=== PATIENT | female | born 1960 | race Caucasian/White ===

== ENCOUNTER 2025-02-06 11:17 | Outpatient (CLI) | payer OTHER, SELFPAY ==
--- NOTE | ~2025-02-06 | MM_ITS ---
EXAMINATION: MM screening sierra BI w any HISTORY: Screening TECHNIQUE: Craniocaudal and mediolateral oblique 3-D tomosynthesis images were obtained and synthetic 2-D images were generated. CAD analysis was submitted and interpreted. COMPARISON: No prior mammogram is available for comparison at this institution. BREAST PARENCHYMAL COMPOSITION: Not Dense: The breasts are almost entirely fatty. FINDINGS: No suspicious calcifications or architectural distortion. Asymmetry in the upper right breast, posterior depth, seen in the right MLO projection. IMPRESSION: 1. Asymmetry in the upper right breast, posterior depth, seen in the right MLO projection. The study is incomplete. A diagnostic mammogram and a diagnostic ultrasound are recommended. BI-RADS 0: Incomplete-Need additional imaging evaluation. Reviewed, dictated, and finalized at Location A. Reviewed, dictated and finalized at location Q. IMPRESSION: 1. Asymmetry in the upper right breast, posterior depth, seen in the right MLO projection. The study is incomplete. A diagnostic mammogram and a diagnostic ul trasound are recommended. BI-RADS 0: Incomplete-Need additional imaging evaluation.
--- OUTSIDE RECORDS SUMMARY | 2025-02-06 11:49 | XMS_ITS | Encounter Summary ---
Author Organization [facility] Address [facility] [place] [address] Care Team Providers Care Server Administrator Name Role Phone None, Provider Primary Care Provider Unavaila ble Encounter Details Date Type Department Care Team (Late st Contact Info) Description 11/17/2015 Abstract [facility] CONVERSION [address] [place], [place] [id number] , Generic Conversion, Social History Tobacco Use Types Packs/Day Years Used Date Smoking Tobacco: Never Assessed Comments Unknown Sex and Gender Information Value Date Recorded Sex Assigned at Not on file Legal Sex Female 6:37 PM CDT Gender Identity Not on file Sexual Orientation Not on file documented as of this encounter Plan of Treatment Not on file documented as of this encounter Visit Diagnoses Not on filedocumented in this encounter Care Teams Server Administrator Relationship Specialty Start Date End Date None, Provider, PCP - General 08/26/20 documented as of this encounter
--- OUTSIDE RECORDS SUMMARY | 2025-02-06 11:49 | XMS_ITS | Clinical Summary ---
Author Organization [facility] Address [facility] [place] [address] Care Team Providers Care Ointment Mill Tender Name Role Phone None, Provider MD Primary Care Provider Unavaila ble Social History Tobacco Use Types Packs/Day Years Used Date Smoking Tobacco: Never Assessed Comments Unknown Sex and Gender Information Value Date Recorded Sex Assigned at Not on file Legal Sex Female 6:37 PM CDT Gender Identity Not on file Sexual Orientation Not on file Last Filed Vital Signs Vital Sign Reading Time Taken Comments Blood Pressure 124/72 02/13/2015 3:44 PM CDT Pulse 72 02/13/2015 3:44 PM CDT Temperature - - Respiratory Rate - - Oxygen Saturation - - Inhaled Oxygen Concentration - - Weight 70.8 kg (156 lb) 02/13/2015 3:44 PM CDT Height 167.6 cm (5' 6) 02/13/2015 3:44 PM CDT Body Mass Index 25.18 02/13/2015 3:44 PM CDT Plan of Treatment Health Maintenance Due Date Last Done Comments Cervical Cancer Screening Pa p Smear (Age 30 to 64) Every 3 Years 1960 Colorectal Cancer Screening Colonoscopy (10 Years) 1960 Annual Physical 12/01/1963 Hepatitis C 1978 DTaP, Tdap and Td Vaccines ( 1 - Tdap) 12/01/1979 Cervical Cancer Screening Pa p with HPV Testing (Age 30 to 64) Every 5 Years 1990 Cervical Cancer Screening wi th HPV 1990 Mammogram Screening 2000 Pneumococcal Vaccine: 50+ Years (1 of 1 - PCV) 2010 Zoster Vaccines (1 of 2) 2010 COVID-19 Vaccine (3 - 2024-2 6 season) 2025 06/30/2020, 06/02/2020 RSV Immunization or 60+ Years (1 - 1-dose 75+ series) 12/01/2035 Meningococcal B Vaccine Aged Out No l onger eligible based on patient's age to complete this topic Meningococcal Vaccine Aged Out No mani fe eligible based on patient's age to complete this topic RSV Immunizations Under 20 Months Aged Out No longer eligible b ased on patient's age to complete this topic Care Teams Ointment Mill Tender Relationship Specialty Start Date End Date None, Provider, PCP - General 08/26/20
== END 2025-02-06 11:18 | disposition home or self-care (01) ==
PROVIDERS: PCP Nurse Practitioner Family; Visit Provider Nurse Practitioner Family
DX: Z12.31 Encounter for screening mammogram for malignant neoplasm of breast (principal); R92.8 Other abnormal and inconclusive findings on diagnostic imaging of breast
CPT/HCPCS: 77063; 77067

== ENCOUNTER 2025-03-18 12:48 | Outpatient (CLI) | payer OTHER, SELFPAY ==
--- OUTSIDE RECORDS SUMMARY | 2023-10-10 10:30 | XMS_ITS ---
Author Organization [facility] dicine Address [address] [place] [address] Care Team Providers Care Spreader Name Role Phone Erica Pires Primary Care Provider [phone] REASON FOR VISIT Med check Vital Signs Temperature 97.1 degrees Fahrenheit 10/10/19 24 Blood pressure systolic 118 mm Hg 10/10/19 24 Blood pressure diastolic 80 mm Hg 024 Heart Rate 61 /min 10/10/2023 Respiratory Rate 16 /min 10/10/2023 Weight 154.37 lbs 10/10/2023 Oximetry 99 % 10/10/2023 Weight-kg 70.02 kg 10/10/2023 Encounters Encounter Location Date Provider Diagnosis [address] [address] 10/10/2023 Erica Pires Hematuria, unspecifi ed R31.9 [...] Luz Marina RIOS FDOB:[birth year] (64 yo F)Acc No.[id number]:10/10/2023 Patient: Luz Marina Daniel Provider: Uriah Pires NP :1960 A ge:62 Y S ex:Female Date:10/10/2023 Address:[address] [place], [place] [phone] Subjective: * Chief Complaints: * M ed [...] * Electronic signature of Mechelle Pires on 03/18/2025 at 02:35 PM CDT Sign off status: Pending * Provider: Uriah Pires NP Date: 0 10/10/2023 Generated for Sondra connor/Jessica/Kortney on: 1 02:35 PM CDT
--- OUTSIDE RECORDS SUMMARY | 2023-10-12 04:00 | XMS_ITS ---
Author Organization [facility] Address [address] [place] [address] Care Team Providers Care Dope Firer Name Role Phone Erica Pires Primary Care Provider [phone] Migration, Provider Unavailable Unavailable REASON FOR VISIT EMR-[facility] Encounters Encounter Location Date Provider Diagnosis [facility] [address] [place] [address] 10/12/2023 Provider Migration Hematuria, unspecified R31.9 Assessments Encounter Date Diagnosis (ICD Code) Assessment Notes Treatment Notes Treatment Clinical Notes Section Notes 10/12/2023 Hematuria, unspecified (ICD-10 - R31.9) Plan Of Treatment No Information Progress Notes * VALENCIAFatoumataLuz Marina FDOB:[birth year] (64 yo F)Acc No.[id number]:10/12/2023 Patient: Luz Marina Daniel Provider: Imani davis Migration :1960 A ge:62 Y S ex:Female Date:10/12/2023 Address:[address] [place], [place] [phone] Pcp:Erica Pires Subjective: * Chief Complaints: * [...] Electronic signature of Prov ider Migration on 03/18/2025 at 02:36 PM CDT Sign off status: Pending * Provider: Imani davis Migration Date: 0 10/12/2023 Generated for Sondra connor/Jessica/Chetansmitting on: 1 02:36 PM CDT
--- OUTSIDE RECORDS SUMMARY | 2024-01-08 08:00 | XMS_ITS ---
Author Organization [facility] Address [address] [place] [address] Care Team Providers Care Animal Nursery Worker Name Role Phone TommyErica marcelino Primary Care Provider [phone] Dr. Linda Kang Unavailable [phone] REASON FOR VISIT foreign body in foot for a few mo Vital Signs Temperature 97.4 degrees Fahrenheit 01/08/20 24 Blood pressure systolic 118 mm Hg 01/08/20 24 Blood pressure diastolic 76 mm Hg 024 Heart Rate 61 /min 01/08/2024 Respiratory Rate 18 /min 01/08/2024 Weight 156.40 lbs 01/08/2024 Oximetry 97 % 01/08/2024 Weight-kg 70.94 kg 01/08/2024 Encounters Encounter Location Date Provider Diagnosis [address] [address] 01/08/2024 Dr. Linda Kang Pain in left foot M79.672 and Corns and callosities L84 Assessments Encounter Date Diagnosis (ICD Code) Assessment Notes Treatment Notes Treatment Clinical Notes Section Notes 01/08/2024 Pain in left foot (ICD-10 - M79.672) 01/08/2024 Corns and callosities (ICD-10 - L84) Plan Of Treatment No Information Progress Notes * VALENCIA Luz Marina FDOB:[birth year] (64 yo F)Acc No.[id number]:01/08/2024 Patient: Luz Marina Daniel Provider: Cyril Kang MD :1960 A ge:63 Y S ex:Female Date:01/08/2024 Address:[address] [place] [address], [id number] Pcp:Erica Pires Subjective: * Chief Complaints: * [...] - L84 S pecify :Src Diagnosis Name: [place] 2 . P ain in left foot - M79.672 S pecify :Src Diagnosis Name: Left foot pain * Electronic signature of Dr. Linda Kang on 03/18/2025 at 02:36 PM CDT Sign off status: Pending * Provider: Cyril Kang MD Date: 0 01/08/2024 Generated for Sondra connor/Jessica/eTransmitting on: 1 02:36 PM CDT
--- OUTSIDE RECORDS SUMMARY | 2024-03-28 04:00 | XMS_ITS ---
Author Organization [facility] Address [address] [place] [address] Care Team Providers Care Examination Grader Name Role Phone Erica Pires Primary Care Provider [phone] Migration, Provider Unavailable Unavailable REASON FOR VISIT EMR-[facility] Encounters Encounter Location Date Provider Diagnosis [facility] [address] [place] [address] 03/28/2024 Provider Migration Mixed hyperlipidemia E78.2 and [...] TIKALuz Marina BEACH FDOB:[birth year] (64 yo F)Acc No.[id number]:03/28/2024 Patient: Luz Marina Daniel Provider: Imani davis Migration :1960 A ge:63 Y S ex:Female Date:03/28/2024 Address:[address] [place] [address] Pcp:Erica Pires Subjective: * Chief Complaints: * [...] Electronic signature of Antonietta henderson Migration on 03/18/2025 at 02:36 PM CDT Sign off status: Pending * Provider: Imani davis Migration Date: 05/28/2023 Generated for Sondra connor/Jessica/Daisyitting on: 02:36 PM CDT
--- OUTSIDE RECORDS SUMMARY | 2024-04-20 04:00 | XMS_ITS ---
Author Organization [facility] Address [address] [place] [address] Care Team Providers Care Senior Commissions Analyst Name Role Phone Tommychari Erica Primary Care Provider [phone] Migration, Provider Unavailable Unavailable REASON FOR VISIT E[facility] [place] Encounters Encounter Location Date Provider Diagnosis [facility] [address] [place] [address] 04/20/2024 Provider Migration Plan Of Treatment Medication Medication Name Sig Start Date Stop Date Notes Metoprolol Tartrate 50 MG Tablet 0.5 to 1 Oral; Duration: 0 09/22/2020 10/09/2023 ,discontinuereason :Discontinued Rosuvastatin Calcium 5 MG Tablet 1 Oral every day; Duration: 90 10/19/2023 04/15/2024 Progress Notes * Luz Marina RIOS FDOB:[birth year] (64 yo F)Acc No.[id number]:04/20/2024 Patient: Luz Marina BULLOCK :1960 A ge:63 Y S ex:Female Address:[address] [place] [address], [phone] * Refills Stop Rosuvastatin Calcium Tablet, 5 [...]
--- OUTSIDE RECORDS SUMMARY | 2024-04-21 04:00 | XMS_ITS ---
Author Organization [facility] Address [address] [place] [address] Care Team Providers Care Wind Operations Manager Name Role Phone Erica Pires Primary Care Provider [phone] Migration, Provider Unavailable Unavailable Allergies No Known Allergies REASON FOR VISIT [facility] Medications Medication SIG (Take, Route, Frequency, Duration) Notes Start Date End Date Status CALCIUM 500 + VITAMIN D 500 mg(1,250mg) -125 unit Tablet 1 Oral every day; Duration: 0 *[facility]* 09/22/2020 Active Magnesium Oxide 400 mg magnesium oral; Duration: 0 *Pick strength-form from [facility] for eRX* 01/08/2024 Active Shingrix 50 MCG/0.5ML Suspension Reconstituted 0.5 Intramuscular; Duration: 0 02/15/2022 Active Encounters Encounter Location Date Provider Diagnosis [address] [address] 04/21/2024 Provider Migration Plan Of Treatment No Information Progress Notes * Luz Marina RIOS FDOB:[birth year] (64 yo F)Acc No.[id number]:04/21/2024 Patient: Luz Marina BULLOCK :1960 A ge:63 Y S ex:Female Address:[address] [place] [address], [phone] Subjective: * Chief Complaints: * E MR-Silvano * Surgical History: Hysterectomy 11/05/2015 * Medications: T akingMagnesium Oxide 400 mg magnesium oral , Notes to Pharmacist: *Pick strength-form from [facility] for eRX*Shingrix 50 MCG/0.5ML Suspension Reconstituted 0.5 Intramuscular CALCIUM 500 + VITAMIN D 500 mg(1,250mg) -125 unit Tablet 1 Oral every day , Notes to Pharmacist: *[facility] Interaction [facility]*Taking Magnesium Oxide 400 mg magnesium oral , Notes to Pharmacist: *[facility]*Taking Shingrix 50 MCG/0.5ML Suspension Reconstituted 0.5 Intramuscular Taking CALCIUM 500 + VITAMIN D 500 mg(1,250mg) - 125 unit Tablet 1 Oral every day , Notes to Pharmacist: *[facility] Interaction [facility]* * Allergies: N .K.D.A. Objective: Past Vitals:* 10/10/2023 BP: 118/80 mm Hg, HR: 61 /mi n, Oxygen sat %: 99 %, Wt: 154.37 lbs, Wt-k.02 kg * 02/15/2022 BP: 130/72 mm Hg, HR: 68 /mi n, Oxygen sat %: 97 %, Wt: 158.01 lbs, Wt-k.67 kg * * Date:
--- NOTE | ~2025-03-18 | MMUS_ITS ---
EXAMINATION: MM diagnostic sierra RT w any, US breast RT complete HISTORY: Follow-up right breast asymmetry TECHNIQUE: Additional 3-D tomosynthesis images of the right breast were performed and synthetic 2-D images were generated. CAD analysis was submitted and interpreted. High resolution complete right breast ultrasound was performed. COMPARISON: Comparison to multiple prior studies sequentially, with oldest reviewed study dated 01/04/2016. BREAST PARENCHYMAL COMPOSITION: Not dense: There are scattered areas of fibroglandular density. FINDINGS: MAMMOGRAPHIC FINDINGS: There are no suspicious masses, calcifications or architectural distortion in the right breast to suggest malignancy. ULTRASOUND: Complete US of all 4 quadrants of the right breast/s and retroareolar region was reviewed. At 9:00, 9.5 cm from the nipple in the right breast there is a 4 mm intramammary lymph node. There are no suspicious masses in the right breast to suggest malignancy. IMPRESSION: 1. No evidence for malignancy in the right breast. 2. Routine yearly screening mammogram and regular clinical breast examination are recommended. BI-RADS Category 1: Negative Reviewed, dictated and finalized at location B. IMPRESSION: 1. No evidence for malignancy in the right breast. 2. Routine yearly screening mammogram and regular clinical breast examination a re recommended. BI-RADS Category 1: Negative
--- OUTSIDE RECORDS SUMMARY | 2025-03-18 14:37 | XMS_ITS | Patient Health Record ---
Author Organization [facility] Address [address] [place] [address] Care Team Providers Care Administrative Appeals Tribunal Member Name Role Phone Erica Pires Primary Care Provider [phone] Migration, Provider Unavailable Unavailable Allergies No Known Allergies Results Component Value Reference Range Notes MAMMOGRAM, SCREENING Reviewed date:02/07/2025 09:17:19 AM Interpretation:Abnormal Performing Lab: Notes/Report: Abnormal Reason For Referral Reason Screening colonoscop y at [facility] Diagnosis 1 Colon cancer screeni ng (Z12.11) Referral Organization [facility] Referring Provider First Name Erica Referring Provider Last Name Pranay Referring Provider Speciality Nurse Prac titioner Referred Provider Specialty Gastroentero logy General Notes Monie Bedoya 0 09/17/2024 12:04:21 PM CDT >Referral faxed to Dr. Franks [phone], Britni Ramos 11/28/2024 11:03:46 AM CDT >fax sent to f/u on referral, Roshni Chou 02/24/2025 09:50:40 AM CDT >called and was asked to fax over pt documents that were lost in Dr. Franks's system. Referral Priority Routine Medications Medication SIG (Take, Route, Frequency, Duration) Notes Start Date End Date Status Atorvastatin Calcium 10 MG Tablet 1 tablet Orally Once a day; Duration: 90 days 09/13/2024 Active Magnesium Oxide 400 mg magnesium oral; Duration: 0 *Pick strength-form from [employer] for eRX* 01/08/2024 Active CALCIUM 500 + VITAMIN D 500 mg(1,250mg) -125 unit Tablet 1 Oral every day; Duration: 0 *Reorder from [employer] for eRx and Interaction Alerts* 09/22/2020 Active Social History Social History Additional Details Category Social Info Options Details Migrated Social History Migrated Social History Tobacco use: None , Alcohol use: Socially Problems Problem Type SNOMED Code ICD Code Onset Dates Problem Status W/U Status Risk Notes Problem Prediabetes (461228447) Prediabetes (R73.03) Active confirmed Problem Impacted cerumen (40579105) Bilateral impacted cerumen (H61.23) Active confirmed Problem Pain in left foot (333587086022689) Pain in left foot (M79.672) 01/08/20 Active confirmed Problem Hematuria (49151573) Hematuria, unspecified (R31.9) 09/23/19 Active confirmed Problem Screening for malignant neoplasm of colon (148466316) Encounter for screening for malignant neoplasm of colon (Z12.11) 10/10/19 24 Active confirmed Problem Screening for malignant neoplasm of breast (923804707) Encounter for other screening for malignant neoplasm of breast (Z12.39) 02/16/20 22 Active confirmed Problem Encounter for immunization safety counseling (Z71.85) 10/10/19 24 Active confirmed Problem Vaccination given (160689038) Encounter for immunization (Z23) 02/16/20 22 Active confirmed Problem Screening for malignant neoplasm of breast (787482773) Encounter for screening mammogram for malignant neoplasm of breast (Z12.31) 10/10/19 24 Active confirmed Problem Adult health examination (130754244) Encounter for general adult medical examination without abnormal findings (Z00.00) 10/10/19 24 Active confirmed Problem Spasm (14326838) Cramp and spasm (R25.2) 10/10/19 24 Active confirmed Problem Palpitations (90518863) Palpitations (R00.2) 09/23/19 Active confirmed Problem Callosity (336317870) Corns and callosities (L84) 01/08/20 24 Active confirmed Problem Mixed hyperlipidemia (700554730) Mixed hyperlipidemia (E78.2) 09/23/19 Active confirmed Vital Signs Heart Rate 78 /min 09/13/2024 Temperature 97.9 degrees Fahrenheit 09/13/2024 Respiratory Rate 18 /min 09/13/2024 Height-cm 185.42 cm 09/13/2024 Oximetry 99 % 09/13/2024 Blood pressure diastolic 106 mm Hg 09/13/2024 Weight-kg 68.4 kg 09/13/2024 Height 73.00 in 09/13/2024 Blood pressure systolic 154 mm Hg 09/13/2024 Weight 150.8 lbs 09/13/2024 BMI 19.89 kg/m2 09/13/2024 Encounters Encounter Location Date Provider Diagnosis [address] [address] 03/28/2024 Provider Migration Mixed hyperlipidemia E78.2 and Encounter for general adult medical examination without abnormal findings Z00.[address] [address] 09/13/2024 Erica Pires Mixed hyperlipidemia E78.2 ; Encounter for general adult medical examination without abnormal findings Z00.00 ; Prediabetes R73.03 ; Encounter for screening mammogram for malignant neoplasm of breast Z12.31 ; Colon cancer screening Z12.11 ; Bilateral impacted cerumen H61.23 ; Persistent microscopic hematuria R31.29 and Elevated blood pressure reading R03.[address] [address] 04/20/2024 Provider Migration [address] [address] 04/21/2024 Provider Migration Assessments Encounter Date Diagnosis (ICD Code) Assessment Notes Treatment Notes Treatment Clinical Notes Section Notes 03/28/2024 Mixed hyperlipidemia (ICD-10 - E78.2) 03/28/2024 Encounter for general adult medical examination without abnormal findings (ICD-10 - Z00.00) 09/13/2024 Mixed hyperlipidemia (ICD-10 - E78.2) - Total cholesterol is 170, HDL is improved, LDL is under 100, but triglycerides are high.Patient is concerned about the impact of statins on glucose control especially on rosuvastatin. -Will switch to atorvastatin 10 mg. Consider dietary changes, including reducing simple carbs and increasing fiber intake. Discussed potential use of red yeast rice as an alternative to statins but advised against using it concurrently with statins. 09/13/2024 Encounter for general adult medical examination without abnormal findings (ICD-10 - Z00.00) Routine wellness exam today. Reviewed recent lab orders. Order given for mammogram. Will refer for colonoscopy. UTD with Shingrix and TDAP 09/13/2024 Prediabetes (ICD-10 - R73.03) -A1C is 5.7, have no significant concerns at this time. Encouraged to monitor simple carbs 09/13/2024 Encounter for screening mammogram for malignant neoplasm of breast (ICD-10 - Z12.31) -Hard copy of mammogram order given to patient to get done at [facility] 09/13/2024 Colon cancer screening (ICD-10 - Z12.11) -Will start referral to [facility] for colonoscopy 09/13/2024 Bilateral impacted cerumen (ICD-10 - H61.23) -Right ear was significantly impacted. Irrigated until clear. Left ear has some remaining wax 09/13/2024 Persistent microscopic hematuria (ICD-10 - R31.29) -Have been doing annual urine cytologies as the work-up for microscopic hematuria. Last done October 2023. 09/13/2024 Elevated blood pressure reading (ICD-10 - R03.0) BP is elevated today, she admits that she got anxious about coming to doctor today and coming back in building since her mother 6 months ago. She will monitor BP at home and call if BP remains elevated. Plan Of Treatment Pending Test Test Name Order Date Ultrasound : Breast, right 02/07/2025 Mammogram, right breast 02/07/2025 Insurance Providers Payer Name Payer Address Payer Phone Subscriber Number Group Number Insured Name Patient Relationship to Insured Coverage Start Date Coverage End Date [facility] [address] [address] [place] [address] [id number] Luz Marina Rios Self - patient is the insured 4 Medical (General) History Surgical History Surgery Date(Month/Year) Hysterectomy 11/05/2015
--- OUTSIDE RECORDS SUMMARY | 2025-03-18 14:37 | XMS_ITS | Encounter Summary ---
Author Organization [facility] Address [facility] [place] [address] Care Team Providers Care Power Generation Engineer Name Role Phone None, Provider Primary Care Provider Unavaila ble Encounter Details Date Type Department Care Team (Late st Contact Info) Description 11/17/2015 Abstract [facility] CONVERSION [id number] [place], [place] [id number] , Generic Conversion, Social History Tobacco Use [...] on filedocumented in this encounter Care Teams Power Generation Engineer Relationship Specialty Start Date End Date None, Provider, PCP - General 08/26/20 documented as of this encounter
--- OUTSIDE RECORDS SUMMARY | 2025-03-18 14:37 | XMS_ITS | Clinical Summary ---
Author Organization [facility] Address [facility] [place] [address] Care Team Providers Care Stone Crusher Operator Name Role Phone None, Provider MD Primary [...] - 2024-2 6 season) 2025 06/30/2020, 06/02/2020 Influenza Adult (#1) 2025 RSV Immunization or 60+ Years (1 - 1-dose 75+ series) 12/01/2035 Hepatitis A Vaccines Aged Out No long er eligible based on patient's age to complete this topic Meningococcal B Vaccine Aged Out No l onger eligible based on patient's age to complete this topic Meningococcal Vaccine Aged Out No mani fe eligible based on patient's age to complete this topic RSV Immunizations Under 20 Months Aged Out No longer eligible b ased on patient's age to complete this topic Care Teams Stone Crusher Operator Relationship Specialty Start Date End Date None, Provider, PCP - General 08/26/20
== END 2025-03-18 12:49 | disposition home or self-care (01) ==
LOC: ANHFOHIMG 12:52
PROVIDERS: PCP Nurse Practitioner Family; Visit Provider Nurse Practitioner Family
DX: R92.8 Other abnormal and inconclusive findings on diagnostic imaging of breast (principal)
CPT/HCPCS: 76641; 77061; 77065; G0279

== ENCOUNTER 2025-03-26 10:57 | Day surgery (SDC) | payer OTHER, SELFPAY ==
--- OUTSIDE RECORDS SUMMARY | 2023-10-10 09:30 | XMS_ITS ---
Author Organization [facility] dicine Address [address] [place] [address] Care Team Providers Care Lean Manufacturing Specialist Name Role Phone Erica Pires Primary Care Provider [phone] REASON FOR VISIT Med check Vital Signs Temperature 97.1 degrees Fahrenheit 10/10/19 24 Blood pressure systolic 118 mm Hg 10/10/19 24 Blood pressure diastolic 80 mm Hg 024 Heart Rate 61 /min 10/10/2023 Respiratory Rate 16 /min 10/10/2023 Weight 154.37 lbs 10/10/2023 Oximetry 99 % 10/10/2023 Weight-kg 70.02 kg 10/10/2023 Encounters Encounter Location Date Provider Diagnosis [address] [address] 10/10/2023 Erica Pires Hematuria, unspecifi ed R31.9 ; Mixed hyperlipidemia E78.2 ; Cramp and spasm R25.2 ; Encounter for screening for malignant neoplasm of colon Z12.11 ; Encounter for general adult medical examination without abnormal findings Z00.00 ; Encounter for immunization safety counseling Z71.85 and Encounter for screening mammogram for malignant neoplasm of breast Z12.31 Assessments Encounter Date Diagnosis (ICD Code) Assessment Notes Treatment Notes Treatment Clinical Notes Section Notes 10/10/2023 Hematuria, unspecified (ICD-10 - R31.9) 10/10/2023 Mixed hyperlipidemia (ICD-10 - E78.2) 10/10/2023 Cramp and spasm (ICD-10 - R25.2) 10/10/2023 Encounter for screening for malignant neoplasm of colon (ICD-10 - Z12.11) 10/10/2023 Encounter for general adult medical examination without abnormal findings (ICD-10 - Z00.00) 10/10/2023 Encounter for immunization safety counseling (ICD-10 - Z71.85) 10/10/2023 Encounter for screening mammogram for malignant neoplasm of breast (ICD-10 - Z12.31) Plan Of Treatment No Information Progress Notes * Luz Marina RIOS FDOB:[birth year] (64 yo F)Acc No.[id number]:10/10/2023 Patient: Luz Marina Daniel Provider: Uriah Pires NP :1960 A ge:62 Y S ex:Female Date:10/10/2023 Address:[address] [place], [place] [id number] Subjective: * Chief Complaints: * M ed check Objective: * Vitals: B P: 118/80 mm Hg, HR: 61 /min, RR: 16 /min, Temp: 97.1 F, Oxygen sat %: 99 %, Wt: 154.37 lbs, Wt-k.02 kg. Past Vitals:* 02/15/2022 BP: 130/72 mm Hg, HR: 68 /mi n, Oxygen sat %: 97 %, Wt: 158.01 lbs, Wt-k.67 kg Assessment: * Assessment: 1. M ixed hyperlipidemia - E78.2 2 . C ramp and spasm - R25.2 ?Specify :Src Diagnosis Name: Leg cramps 3 . H ematuria, unspecified - R31.9 S pecify :Src Diagnosis Name: Hematuria 4 . E ncounter for general adult medical examination without abnormal findings - Z00.00 S pecify :Src Diagnosis Name: Well adult exam 5 . E ncounter for screening for malignant neoplasm of colon - Z12.11 & #160; 6 . E ncounter for screening mammogram for malignant neoplasm of breast - Z12.31 ? 7 . E ncounter for immunization safety counseling - Z71.85 * Electronic signature of Mechelle Pires on 03/27/2025 at 10:37 AM FACTORY ASSEMBLER Sign off status: Pending * Provider: Uriah Pires NP Date: 0 10/10/2023 Generated for Sondra connor/Jessica/Daisyitting on: 1 05/27/2024 10:37 AM FACTORY ASSEMBLER
--- OUTSIDE RECORDS SUMMARY | 2023-10-12 03:00 | XMS_ITS ---
Author Organization [facility] Address [address] [place] [address] Care Team Providers Care Lock Maintenance Supervisor Name Role Phone Erica Pires Primary Care Provider [phone] Migration, Provider Unavailable Unavailable REASON FOR VISIT EMR-[facility] [place] [facility] Encounters Encounter Location Date Provider Diagnosis [facility] [address] [place] [address] 10/12/2023 Provider Migration Hematuria, unspecified R31.9 Assessments Encounter Date Diagnosis (ICD Code) Assessment Notes Treatment Notes Treatment Clinical Notes Section Notes 10/12/2023 Hematuria, unspecified (ICD-10 - R31.9) Plan Of Treatment No Information Progress Notes * VALENCIAFatoumataLuz Marina FDOB:[birth year] (64 yo F)Acc No.[id number]:10/12/2023 Patient: Luz Marina Daniel Provider: Imani davis Migration :1960 A ge:62 Y S ex:Female Date:10/12/2023 Address:[address] [place], [place] [phone] Pcp:Erica Pires Subjective: * Chief Complaints: * E MR-Silvano Objective: Past Vitals:* 10/10/2023 BP: 118/80 mm Hg, HR: 61 /mi n, Oxygen sat %: 99 %, Wt: 154.37 lbs, Wt-k.02 kg * 02/15/2022 BP: 130/72 mm Hg, HR: 68 /mi n, Oxygen sat %: 97 %, Wt: 158.01 lbs, Wt-k.67 kg Assessment: * Assessment: 1. H ematuria, unspecified - R31.9 S pecify :Src Diagnosis Name: Hematuria * Electronic signature of Prov ider Migration on 03/27/2025 at 10:37 AM PARACHUTE SUPERVISOR Sign off status: Pending * Provider: Imani dvais Migration Date: 0 10/12/2023 Generated for Sondra connor/Jessica/Chetansmitting on: 1 05/27/2024 10:37 AM PARACHUTE SUPERVISOR
--- OUTSIDE RECORDS SUMMARY | 2024-01-08 07:00 | XMS_ITS ---
Author Organization [facility] Address [address] [place] [address] Care Team Providers Care Movement Education Specialist Name Role Phone TommyErica marcelino Primary Care Provider [phone] Dr. Linda Kang Unavailable [phone] REASON FOR VISIT foreign body in foot for a few mo Vital Signs Temperature 97.4 degrees Fahrenheit 01/08/20 24 Blood pressure systolic 118 mm Hg 01/08/20 24 Blood pressure diastolic 76 mm Hg 024 Heart Rate 61 /min 01/08/2024 Respiratory Rate 18 /min 01/08/2024 Weight 156.40 lbs 01/08/2024 Oximetry 97 % 01/08/2024 Weight-kg 70.94 kg 01/08/2024 Encounters Encounter Location Date Provider Diagnosis [address] [address] 01/08/2024 Dr. Linda Kang Pain in left foot M79.672 and Corns and callosities L84 Assessments Encounter Date Diagnosis (ICD Code) Assessment Notes Treatment Notes Treatment Clinical Notes Section Notes 01/08/2024 Pain in left foot (ICD-10 - M79.672) 01/08/2024 Corns and callosities (ICD-10 - L84) Plan Of Treatment No Information Progress Notes * VALENCIA Luz Marina FDOB:[birth year] (64 yo F)Acc No.[id number]:01/08/2024 Patient: Luz Marina Daniel Provider: Cyril Kang MD :1960 A ge:63 Y S ex:Female Date:01/08/2024 Address:[address] [place] [address], [id number] Pcp:Erica Pires Subjective: * Chief Complaints: * F oreign body in foot for a few mo Objective: * Vitals: B P: 118/76 mm Hg, HR: 61 /min, RR: 18 /min, Temp: 97.4 F, Oxygen sat %: 97 %, Wt: 156.40 lbs, Wt-k.94 kg. Past Vitals:* 10/10/2023 BP: 118/80 mm Hg, HR: 61 /mi n, Oxygen sat %: 99 %, Wt: 154.37 lbs, Wt-k.02 kg * 02/15/2022 BP: 130/72 mm Hg, HR: 68 /mi n, Oxygen sat %: 97 %, Wt: 158.01 lbs, Wt-k.67 kg Assessment: * Assessment: 1. C orns and callosities - L84 S pecify :Src Diagnosis Name: [place] 2 . P ain in left foot - M79.672 S pecify :Src Diagnosis Name: Left foot pain * Electronic signature of Dr. Linda Kang on 03/27/2025 at 10:36 AM CODING VALIDATOR Sign off status: Pending * Provider: Cyril Kang MD Date: 0 01/08/2024 Generated for Sondra connor/Jessica/eTransmitting on: 1 05/27/2024 10:36 AM CODING VALIDATOR
--- OUTSIDE RECORDS SUMMARY | 2024-03-28 03:00 | XMS_ITS ---
Author Organization [facility] Address [address] [place] [address] Care Team Providers Care Cardiac Monitor Technician Name Role Phone Erica Pires Primary Care Provider [phone] Migration, Provider Unavailable Unavailable REASON FOR VISIT EMR-[facility] Encounters Encounter Location Date Provider Diagnosis [facility] [address] [place] [address] 03/28/2024 Provider Migration Mixed hyperlipidemia E78.2 and Encounter for general adult medical examination without abnormal findings Z00.00 Assessments Encounter Date Diagnosis (ICD Code) Assessment Notes Treatment Notes Treatment Clinical Notes Section Notes 03/28/2024 Mixed hyperlipidemia (ICD-10 - E78.2) 03/28/2024 Encounter for general adult medical examination without abnormal findings (ICD-10 - Z00.00) Plan Of Treatment No Information Progress Notes * TIKALuz Marina BEACH FDOB:[birth year] (64 yo F)Acc No.[id number]:03/28/2024 Patient: Luz Marina Daniel Provider: Imani davis Migration :1960 A ge:63 Y S ex:Female Date:03/28/2024 Address:[address] [place] [phone] Pcp:Erica Pires Subjective: * Chief Complaints: * E MR-Silvano Objective: Past Vitals:* 10/10/2023 BP: 118/80 mm Hg, HR: 61 /mi n, Oxygen sat %: 99 %, Wt: 154.37 lbs, Wt-k.02 kg * 02/15/2022 BP: 130/72 mm Hg, HR: 68 /mi n, Oxygen sat %: 97 %, Wt: 158.01 lbs, Wt-k.67 kg Assessment: * Assessment: 1. M ixed hyperlipidemia - E78.2 2 . E ncounter for general adult medical examination without abnormal findings - Z00.00 S pecify :Src Diagnosis Name: Well adult exam * Electronic signature of Antonietta henderson Migration on 03/27/2025 at 10:37 AM POULTRY TENDER Sign off status: Pending * Provider: Imani davis Migration Date: 05/28/2023 Generated for Sondra connor/Jessica/Daisyitting on: 05/27/2024 10:37 AM POULTRY TENDER
--- OUTSIDE RECORDS SUMMARY | 2024-04-20 03:00 | XMS_ITS ---
Author Organization [facility] Address [address] [place] [address] Care Team Providers Care Residential Real Estate Appraiser Name Role Phone Tommychari Erica Primary Care Provider [phone] Migration, Provider Unavailable Unavailable REASON FOR VISIT [facility] En[place] Encounter Location Date Provider Diagnosis [facility] [address] [place] [address] 04/20/2024 Provider Migration Plan Of Treatment Medication Medication Name Sig Start Date Stop Date Notes Metoprolol Tartrate 50 MG Tablet 0.5 to 1 Oral; Duration: 0 09/22/2020 10/09/2023 ,discontinuereason :Discontinued Rosuvastatin Calcium 5 MG Tablet 1 Oral every day; Duration: 90 10/19/2023 04/15/2024 Progress Notes * Luz Marina RISO FDOB:[birth year] (64 yo F)Acc No.[id number]:04/20/2024 Patient: Luz Marina BULLOCK :1960 A ge:63 Y S ex:Female Address:[address] [place] [address], [phone] * Refills Stop Rosuvastatin Calcium Tablet, 5 MG, Oral, 90, 1, every day, 90 Stop Rosuvastatin Calcium Tablet, 5 MG, Oral, 90, 1, every day, 90 Stop Metoprolol Tartrate Tablet, 50 MG, Oral, 0.5 to 1, 0 Stop Rosuvastatin Calcium Tablet, 5 MG, Oral, 90, 1, every day, 90 Stop Rosuvastatin Calcium Tablet, 5 MG, Oral, 1, every day, 0 Stop Rosuvastatin Calcium Tablet, 5 MG, Oral, 90, 1, every day, 90 Stop Rosuvastatin Calcium Tablet, 5 MG, Oral, 30, 1, every day, 30 Subjective: * Chief Complaints: * E MR-Silvano Objective: Past Vitals:* 10/10/2023 BP: 118/80 mm Hg, HR: 61 /mi n, Oxygen sat %: 99 %, Wt: 154.37 lbs, Wt-k.02 kg * 02/15/2022 BP: 130/72 mm Hg, HR: 68 /mi n, Oxygen sat %: 97 %, Wt: 158.01 lbs, Wt-k.67 kg * * Date:
--- OUTSIDE RECORDS SUMMARY | 2024-04-21 03:00 | XMS_ITS ---
Author Organization [facility] Address [address] [place] [address] Care Team Providers Care Ocean Lifeguard Specialist Name Role Phone Erica Pires Primary Care Provider [phone] Migration, Provider Unavailable Unavailable Allergies No Known Allergies REASON FOR VISIT [facility] Medications Medication SIG (Take, Route, Frequency, Duration) Notes Start Date End Date Status CALCIUM 500 + VITAMIN D 500 mg(1,250mg) -125 unit Tablet 1 Oral every day; Duration: 0 *[facility] Interaction Alert[facility]* 09/22/2020 Active Magnesium Oxide 400 mg magnesium oral; Duration: 0 *Pick strength-form from [facility] for eRX* 01/08/2024 Active Shingrix 50 MCG/0.5ML Suspension Reconstituted 0.5 Intramuscular; Duration: 0 02/15/2022 Active Encounters Encounter Location Date Provider Diagnosis [address] [address] 04/21/2024 Provider Migration Plan Of Treatment No Information Progress Notes * Luz Marina RIOS FDOB:[birth year] (64 yo F)Acc No.[id number]:04/21/2024 Patient: Luz Marina BULLOCK :1960 A ge:63 Y S ex:Female Address:[address] [place] [address], [address] Subjective: * Chief Complaints: * E MR-Silvano * Surgical History: Hysterectomy 11/05/2015 * Medications: T akingMagnesium Oxide 400 mg magnesium oral , Notes to Pharmacist: *Pick strength-form from [facility] for eRX*Shingrix 50 MCG/0.5ML Suspension Reconstituted 0.5 Intramuscular CALCIUM 500 + VITAMIN D 500 mg(1,250mg) -125 unit Tablet 1 Oral every day , Notes to Pharmacist: *[facility] and Interaction Alerts*Taking Magnesium Oxide 400 mg magnesium oral , Notes to Pharmacist: *[facility]*Taking Shingrix 50 MCG/0.5ML Suspension Reconstituted 0.5 Intramuscular Taking CALCIUM 500 + VITAMIN D 500 mg(1,250mg) - 125 unit Tablet 1 Oral every day , Notes to Pharmacist: *[facility]* * Allergies: N .K.D.A. Objective: Past Vitals:* 10/10/2023 BP: 118/80 mm Hg, HR: 61 /mi n, Oxygen sat %: 99 %, Wt: 154.37 lbs, Wt-k.02 kg * 02/15/2022 BP: 130/72 mm Hg, HR: 68 /mi n, Oxygen sat %: 97 %, Wt: 158.01 lbs, Wt-k.67 kg * * Date:
[2025-03-13 08:17] VITALS: BMI 25.6
--- NOTE | 2025-03-26 | S_PTH ---
PATIENT: Luz Marina Rios LOC: [facility] #:[id number] AGE/SX: 64/F ROOM: RE03/26/[address]: Branden Styles DO : 1960 BED: DIS: 03/26/2025 SPEC #: [id number] RECD: 03/26/25 13:12 STATUS: NIRAJ RERenu #: [id number] SHELL: 03/26/25 00:[address]: Branden Styles DEPT: [facility] [place] Surgical RECD BY: Shira Dunbar ENTERED: 03/26/25 13:13 SP TYPE: Surgical OTHR DR: Erica Pires, ANP Tissues: A - Colon Polypectomy Procedures: Hematoxylin and Eosin Stain Gross and Microscopic Level 4
[2025-03-26 11:12] VITALS: BP 146/76; PULSE 75; RESP 18; TEMP 36.4; O2SAT 100; BMI 24.7
[2025-03-26] MEDS: LACTATED RINGERS 1,000 ML 150 ML IV CONT (11:22)
--- NOTE | 2025-03-26 11:30 | PM.IMHP ---
H&P: HPI History of Present Illness Date/Time: 03/26/25 11:30 Chief Complaint: Screening for colorectal cancer, family history of colon cancer Narrative: This is a 64-year-old woman who presents for colonoscopy. She has never had a colonoscopy before. Her mother was diagnosed with colon cancer her 80s just at the age of 89 1 year ago. She denies any hematochezia or melena. Review of Systems Review of Systems: All systems reviewed & are unremarkable except as noted in HPI and below Constitutional: Constitutional: Denies chills, Denies fever(s), Denies headache(s) and Denies weight loss Eyes: Eyes: Denies change in vision ENT: Denies dizziness, Denies headache(s), Denies neck mass and Denies throat swelling Cardiovascular: Cardiovascular: Denies chest pain, Denies lightheadedness and Denies dyspnea Respiratory: Respiratory: Denies cough, Denies dyspnea and Denies wheezing Gastrointestinal: Gastrointestinal: Denies abdominal pain, Denies change in bowel habits, Denies nausea and Denies vomiting Genitourinary: Genitourinary: Denies hematuria and Denies dysuria Musculoskeletal: Musculoskeletal: Reports as per HPI Integumentary/Breasts: Skin/Breast: Reports as per HPI Neurologic: Denies dizziness and Denies headache(s) Allergic/Immunologic: Allergic/Immunologic: Denies throat swelling and Denies wheezing PMFSH Social History Social History Smoking status: Never smoker Living arrangements: with family Spiritual care concerns: No Meds Home Medications and Allergies Home Medications ?Medication ?Instructions ?Recorded ?Confirmed ?Type atorvastatin 10 mg tablet 10 mg PO HS 03/13/25 03/26/25 History Allergies Allergy/AdvReac Type Severity Reaction Status Date / Time No Known Allergies Allergy Verified 03/26/25 11:09 Vital Signs Vital Signs - 24 hr 03/26/25 11:12 Temperature 97.6 F Pulse Rate 75 Respiratory Rate 18 Blood Pressure 146/76 H Pulse Oximetry 100 Oxygen Delivery Room Air Exam Const: General: no acute distress and alert Orientation/consciousness: patient oriented x3 HENMT: Head: normocephalic and atraumatic Ears: hearing grossly normal bilaterally Face/Nose/Sinus: Normal nares present Mouth: Yes Normal oral and palatal mucosa present Eyes: Periorbital: periorbital findings normal Sclera: sclerae normal EOM: EOMs intact bilaterally Neck: Neck: normal visual inspection, no lymphadenopathy and trachea midline Chest: Chest palpation & inspection: normal inspection of the chest Resp: Effort & Inspection: normal respiratory effort Auscultation: clear to auscultation bilaterally Cardio: Jugular venous distension: no JVD Rate: regular rate Rhythm: regular rhythm Heart sounds: S1 normal heart sound present and S2 normal heart sound present Peripheral pulses: Peripheral pulses 2+ throughout GI: Inspection: normal to inspection GI Palp: Yes Soft to palpation, No Tenderness to palpation present (GI), No Guarding due to palpation present (GI) and No Rebound tenderness present Percussion: Yes normal to percussion Auscultation: normal bowel sounds : General: Yes no CVA tenderness Back/Spine/Pelvis: Back: no CVA tenderness Neuro: General: patient oriented x3, no focal motor deficits and CN's II-XI intact bilaterally Cognition (Neuro): normal cognition Speech: normal speech Motor exam (neuro): 5/5 motor strength present throughout Extrem: General: capillary refill normal and no clubbing, cyanosis or edema Assessment and Plan Assessment and plan (1) Screening for colorectal cancer: Code(s): Z12.11 - Encounter for screening for malignant neoplasm of colon; Z12.12 - Encounter for screening for malignant neoplasm of rectum Status: Acute Assessment and Plan: I have recommended colonoscopy. I have discussed the procedure, risks, benefits, and alternatives. Questions were answered. Patient is agreeable to proceed.
--- NOTE | 2025-03-26 11:33 | P.PNAN_ITS ---
Anes - Initial Pre Proc Eval Procedure: Operation Date: 03/26/25 12:30 Proposed Procedures p Screening Colonoscopy - Branden Styles DO Date/Time: 03/26/25 11:33 Surgeon: Branden Styles DO Pre Op Diagnosis: screening for malignant neoplasm of colon Patient Data Age: 64 Gender: F Height: 1.68 m Weight: 69.6 kg Last Vital Signs Temp 36.4 C 03/26/25 11:12 Pulse 75 03/26/25 11:12 Resp 18 03/26/25 11:12 BP 146/76 H 03/26/25 11:12 Pulse Ox 100 03/26/25 11:12 O2 Del Method Room Air 03/26/25 11:12 Allergies Allergy/AdvReac Type Severity Reaction Status Date / Time No Known Allergies Allergy Verified 03/26/25 11:09 Home Medications ?Medication ?Instructions ?Recorded ?Confirmed ?Type atorvastatin 10 mg tablet 10 mg PO HS 03/13/25 5 History Patient hx anesthesia problems: none Family hx anesthesia problems: none Results Review: All pre-operative results and documents have been reviewed as part of the pre- operative evaluation. [facility] Past Medical History Medical History (Updated 03/26/25 @ 11:33 by Florencia Goodrich CRNA) Hyperlipemia Social History Social History Smoking status: Never smoker Living arrangements: with family Spiritual care concerns: No Anes - Eval Final PreProcedure Day of Procedure 03/26/25 11:33 Patient weight: overweight Heart: regular rate and rhythm Lungs: clear to auscultation and normal air movement Airway: Mallampati scale class 1 Neurological: alert and oriented Last oral intake: >/= 8 hours Emergent: no Anesthetic plan: proceed Anesthesia type and monitoring: general GIVS and standard monitoring Results Review: All pre-operative results and documents have been reviewed as part of the pre- operative evaluation. Informed Consent: The patient's anesthetic plan and its attendant risks and benefits were discussed with the patient/family/POA. Questions were solicited and answers provided to the satisfaction of the patient/family/POA.
[2025-03-26 11:55] VITALS: BP 102/65; PULSE 75; RESP 19; O2SAT 100
[2025-03-26 12:05] VITALS: BP 106/69; PULSE 74; RESP 22; O2SAT 100
[2025-03-26 12:15] VITALS: BP 116/70; PULSE 67; RESP 16; O2SAT 100
--- OUTSIDE RECORDS SUMMARY | 2025-03-27 10:37 | XMS_ITS | Patient Health Record ---
Author Organization [facility] dicine Address [address] [place] [address] Care Team Providers Care Groundman Name Role Phone Erica Pires Primary Care Provider [phone] Migration, Provider Unavailable Unavailable Allergies No Known Allergies Results Component Value Reference Range Notes Mammogram, right breast Reviewed date:03/19/2025 01:27:51 PM Interpretation: Performing Lab: Notes/Report: Ultrasound : Breast, right Reviewed date:03/21/2025 10:59:15 AM Interpretation: Performing Lab: Notes/Report: MAMMOGRAM, SCREENING Reviewed date:02/07/2025 09:17:19 AM Interpretation:Abnormal Performing Lab: Notes/Report: Abnormal Reason For Referral Reason Screening colonoscop y at [facility] Diagnosis 1 Colon cancer screeni ng (Z12.11) Referral Organization [facility] Referring Provider First Name Erica Referring Provider Last Name Pranay Referring Provider Speciality Nurse Prac titioner Referred Provider Specialty Gastroentero logy General Notes Monie Bedoya 0 09/17/2024 12:04:21 PM CDT >Referral faxed to Dr. Franks [phone], Britni Ramos 11/28/2024 11:03:46 AM CDT >fax [...] magnesium oral; Duration: 0 *Pick strength-form from [employer] for eRX* 01/08/2024 Active CALCIUM 500 + VITAMIN D 500 mg(1,250mg) -125 unit Tablet 1 Oral every day; Duration: 0 *Reorder from [employer] for eRx and Interaction Alerts* 09/22/2020 Active Social History Social History Additional Details Category Social Info Options Details Migrated Social History Migrated Social History Tobacco use: None , Alcohol use: Socially Problems Problem Type SNOMED Code ICD Code Onset Dates Problem Status W/U Status Risk Notes Problem Mixed hyperlipidemia (239983678) Mixed hyperlipidemia (E78.2) 09/23/19 Active confirmed Problem Callosity (307215877) Corns and callosities (L84) 01/08/20 24 Active confirmed Problem Pain in left foot (929535968386199) Pain in left foot (M79.672) 01/08/20 24 Active confirmed Problem Palpitations (81595181) Palpitations (R00.2) 09/23/19 21 Active confirmed Problem Spasm (83440977) Cramp and spasm (R25.2) 10/10/19 24 Active confirmed Problem Hematuria (85261611) Hematuria, unspecified (R31.9) 09/23/19 21 Active confirmed Problem Adult health examination (055819618) Encounter for general adult medical examination without abnormal findings (Z00.00) 10/10/19 24 Active confirmed Problem Screening for malignant neoplasm of colon (171721561) Encounter for screening for malignant neoplasm of colon (Z12.11) 10/10/19 24 Active confirmed Problem Screening for malignant neoplasm of breast (964627604) Encounter for screening mammogram for malignant neoplasm of breast (Z12.31) 10/10/19 24 Active confirmed Problem Screening for malignant neoplasm of breast (786236058) Encounter for other screening for malignant neoplasm of breast (Z12.39) 02/16/20 22 Active confirmed Problem Vaccination given (854394871) Encounter for immunization (Z23) 02/16/20 Active confirmed Problem Prediabetes (242946933) Prediabetes (R73.03) Active confirmed Problem Encounter for immunization safety counseling (Z71.85) 10/10/19 24 Active confirmed Problem Impacted cerumen (78210045) Bilateral impacted cerumen (H61.23) Active confirmed Vital Signs Heart Rate 78 /min 09/13/2024 Temperature 97.9 degrees Fahrenheit 09/13/2024 Respiratory Rate 18 /min 09/13/2024 Height-cm 185.42 cm 09/13/2024 Oximetry 99 % 09/13/2024 Blood pressure diastolic 106 mm Hg 09/13/2024 Weight-kg 68.4 kg 09/13/2024 Height 73.00 in 09/13/2024 Blood pressure systolic 154 mm Hg 09/13/2024 Weight 150.8 lbs 09/13/2024 BMI 19.89 kg/m2 09/13/2024 Encounters Encounter Location Date Provider Diagnosis [address] [address] 03/28/2024 Provider Migration Mixed hyperlipidemia E78.2 and Encounter for general adult medical examination without abnormal findings Z00.[address] [address] 09/13/2024 Erica Pranay Mixed hyperlipidemia E78.2 ; Encounter for general adult medical examination without abnormal findings Z00.00 ; Prediabetes R73.03 ; Encounter for screening mammogram for malignant neoplasm of breast Z12.31 ; Colon cancer screening Z12.11 ; Bilateral impacted cerumen H61.23 ; Persistent microscopic hematuria R31.29 and Elevated blood pressure reading R03.[address] [address] 04/20/2024 Provider Migration [address] [address] 04/21/2024 Provider Migration Assessments Encounter Date Diagnosis [...] given to patient to get done at [facility] 09/13/2024 Colon cancer screening (ICD-10 - Z12.11) -Will start referral to [place] for colonoscopy 09/13/2024 Bilateral impacted cerumen (ICD-10 [...] if BP remains elevated. Plan Of Treatment No Information Insurance Providers Payer Name Payer Address Payer Phone Subscriber Number Group Number Insured Name Patient Relationship to Insured Coverage Start Date Coverage End Date [facility] [address] [address] [place] [address] [id number] Luz Marina Rios Self - patient is the insured 4 Medical (General) History Surgical History Surgery Date(Month/Year) Hysterectomy 11/05/2015
== END 2025-03-26 12:25 | disposition home or self-care (01) ==
PROVIDERS: PCP Nurse Practitioner Family; Visit Provider Surgery
PROC: 0DJD8ZZ Inspection of Lower Intestinal Tract, Via Natural or Artificial Opening Endoscopic (ICD-10-PCS; CPT 45378; principal; 2025-03-26 12:30)
DX: Z12.11 Encounter for screening for malignant neoplasm of colon (principal); K63.5 Polyp of colon; K57.30 Diverticulosis of large intestine without perforation or abscess without bleeding; E78.5 Hyperlipidemia, unspecified; Z80.0 Family history of malignant neoplasm of digestive organs
CPT/HCPCS: 45378; 88305; J2704; J7120